=== PATIENT | female | born 1955 | race Caucasian/White ===

== ENCOUNTER 2019-05-25 11:20 | Emergency (ER) | payer OTHER ==
[~2019-05-25] VITALS: Ht 162.6 cm; Wt 72.6 kg
[2019-05-25] MEDS ORDERED: LIPITOR10 MG PO (11:45)
[2019-05-25 12:15] LABS: HEMATOCRIT 37.7 % (37.0-47.0); HEMOGLOBIN 13.1 gm/dL (12.0-15.0); MCHC 34.8 g/dL (28.0-37.0); MCV 86.3 fL (80.0-100.0); MPV 8.6 fl. (7.2-11.1); RBC 4.37 mil/uL (4.20-5.00); RDW-CV 12.7 % (10.5-14.5); WBC 8.4 thou/uL (4.0-11.0)
[2019-05-25 12:19] LABS: URINE BLOOD 2+ (Negative); URINE CLARITY CLEAR; URINE COLOR STRAW; URINE GLUCOSE-RANDOM NEGATIVE (Negative); URINE LEUKOCYTES-REFLEX NEGATIVE (Negative); URINE NITRITE-REFLEX NEGATIVE (Negative); URINE PROTEIN 2+ (Negative); URINE SPECIFIC GRAVITY >= 1.030 (1.005-1.030)
[2019-05-25 12:22] LABS: CALCIUM 8.2 mg/dL (8.5-10.1); POTASSIUM 4.3 mmol/L (3.5-5.1)
[2019-05-25 12:22] LABS: ICTOTEST (BILI CONFIRMATORY) Negative (Negative); URINE BILIRUBIN 2+ (Negative); URINE KETONES 3+ (Negative)
[2019-05-25 12:26] LABS: BACTERIA-REFLEX 1-9 Few /HPF (None Seen); MUCUS 0-3 Light strn/LPF (None Seen); SQUAMOUS 0-3 Few /LPF (0-3); URINE RBC 3-10 Few /HPF (0-2); URINE WBC-REFLEX 0-5 Rare /HPF (0-5)
[2019-05-25 12:27] LABS: AMORPHOUS URATES Few /LPF (None Seen); COARSE GRANULAR CASTS 0-3 Few /LPF (None Seen); FINE GRANULAR CASTS 0-3 Few /LPF (None Seen); HYALINE CASTS 4-10 Moderate /LPF (None Seen)
[2019-05-25 12:28] LABS: ALBUMIN 3.3 g/dL (3.4-5.0); TOTAL BILIRUBIN 0.4 mg/dL (<0.1-1.0); TOTAL PROTEIN 7.2 g/dL (6.4-8.2)
[2019-05-25 12:52] LABS: INFLUENZA A ANTIGEN Negative (Negative); INFLUENZA B ANTIGEN Negative (Negative)
[2019-05-25] MEDS ORDERED: LEVAQUIN 500 M500 M3 PO ×2 (13:45→14:01)
[2019-05-25 14:10] VITALS: BP 125/74
== END 2019-05-25 14:11 | disposition home or self-care (01) ==
LOC: M.ERS 11:20
PROVIDERS: Nurse Practitioner Family
DX: J18.9 Pneumonia, unspecified organism (principal); R68.89 Other general symptoms and signs; R31.9 Hematuria, unspecified; R19.7 Diarrhea, unspecified; E78.5 Hyperlipidemia, unspecified; Z90.710 Acquired absence of both cervix and uterus; Z98.51 Tubal ligation status; Z90.89 Acquired absence of other organs; Z86.2 Personal history of diseases of the blood and blood-forming organs and certain disorders involving the immune mechanism

== ENCOUNTER 2019-05-27 19:18 | Inpatient (IN) | payer OTHER ==
[~2019-05-27] VITALS: Ht 157.5 cm; Wt 74.8 kg
[~2019-05-27 19:18] MED LIST: LEVAQUIN 500 M500 M3 PO; LIPITOR10 MG PO
[2019-05-27 19:34] VITALS: BP 124/64
[2019-05-27 20:09] LABS: CREATININE 0.9 mg/dL (0.6-1.3); POTASSIUM 3.5 mmol/L (3.5-5.1)
[2019-05-27 20:16] LABS: INR 1.2; PROTIME 12.4 Seconds (9.20-11.50)
[2019-05-27 20:21] LABS: ALBUMIN 3.1 g/dL (3.4-5.0); MAGNESIUM 1.8 mg/dL (1.8-2.4); TOTAL BILIRUBIN 0.4 mg/dL (<0.1-1.0); TOTAL PROTEIN 6.7 g/dL (6.4-8.2)
[2019-05-27 20:57] LABS: ABSOLUTE EOSINOPHILS 0.3 thou/uL (0.0-0.7); ABSOLUTE MONOCYTES 0.6 thou/uL (0.0-1.2); ABSOLUTE NEUTROPHILS 6.7 thou/uL (1.6-8.1); BASOPHILS 0.5 %; HEMATOCRIT 31.2 % (37.0-47.0); LYMPHOCYTES 11.2 %; MCH 30.2 pg (26.0-34.0); MCV 86.4 fL (80.0-100.0); MONOCYTES 7.3 %; MPV 9.3 fl. (7.2-11.1); NUCLEATED RBCS 0 /100WBC; RBC 3.61 mil/uL (4.20-5.00); RDW-CV 12.6 % (10.5-14.5); WBC 8.6 thou/uL (4.0-11.0)
[2019-05-27 21:16] LABS: HEMOGLOBIN 10.9 gm/dL (12.0-15.0)
[2019-05-27 21:20] LABS: PLATELET COUNT* 3 thou/uL (150-400); PLATELET ESTIMATE DECREASED
[2019-05-27 23:25] LABS: URINE BILIRUBIN NEGATIVE (Negative); URINE BLOOD 2+ (Negative); URINE CLARITY CLEAR; URINE COLOR YELLOW; URINE GLUCOSE-RANDOM NEGATIVE (Negative); URINE LEUKOCYTES-REFLEX NEGATIVE (Negative); URINE NITRITE-REFLEX NEGATIVE (Negative); URINE PROTEIN TRACE (Negative); URINE SPECIFIC GRAVITY >= 1.030 (1.005-1.030); URINE UROBILINOGEN 0.2 E.U./dl (0.2-1.0)
[2019-05-27 23:26] LABS: URINE KETONES 3+ (Negative)
[2019-05-27 23:34] LABS: SQUAMOUS 0-3 Few /LPF (0-3)
[2019-05-27 23:35] LABS: BACTERIA-REFLEX >30 Many /HPF (None Seen); CRYSTALS None Seen /LPF (None Seen); FINE GRANULAR CASTS 4-10 Moderate /LPF (None Seen); HYALINE CASTS 4-10 Moderate /LPF (None Seen); MUCUS >6 Heavy strn/LPF (None Seen); URINE WBC-REFLEX 6-15 Few /HPF (0-5)
[2019-05-28] VITALS (12 sets, daily range): BP systolic 94–135; BP diastolic 38–72
[2019-05-28 03:39] LABS: HEMATOCRIT 31.7 % (37.0-47.0); MCH 30.3 pg (26.0-34.0); MCHC 34.9 g/dL (28.0-37.0); MCV 86.9 fL (80.0-100.0); MPV 8.8 fl. (7.2-11.1); RBC 3.65 mil/uL (4.20-5.00); RDW-CV 12.7 % (10.5-14.5); WBC 8.1 thou/uL (4.0-11.0)
[2019-05-28 04:26] LABS: CALCIUM 7.3 mg/dL (8.5-10.1); CREATININE 0.6 mg/dL (0.6-1.3); POTASSIUM 3.8 mmol/L (3.5-5.1)
[2019-05-28 18:36] LABS: ABSOLUTE BASOPHILS 0.1 thou/uL (0.0-0.2); ABSOLUTE EOSINOPHILS 0.2 thou/uL (0.0-0.7); ABSOLUTE LYMPHOCYTES 1.3 thou/uL (0.8-5.3); ABSOLUTE MONOCYTES 0.7 thou/uL (0.0-1.2); ABSOLUTE NEUTROPHILS 6.5 thou/uL (1.6-8.1); BASOPHILS 0.6 %; EOSINOPHILS 2.7 %; HEMATOCRIT 29.6 % (37.0-47.0); HEMOGLOBIN 10.4 gm/dL (12.0-15.0); LYMPHOCYTES 14.5 %; MCH 30.6 pg (26.0-34.0); MCHC 35.3 g/dL (28.0-37.0); MCV 86.7 fL (80.0-100.0); MONOCYTES 8.2 %; MPV 9.3 fl. (7.2-11.1); NUCLEATED RBCS 0 /100WBC; RBC 3.41 mil/uL (4.20-5.00); RDW-CV 12.9 % (10.5-14.5); WBC 8.7 thou/uL (4.0-11.0)
[2019-05-28 18:38] LABS: PLATELET COUNT* 3 thou/uL (150-400)
[2019-05-28 23:04] LABS: HEMATOCRIT 26.1 % (37.0-47.0); HEMOGLOBIN 9.2 gm/dL (12.0-15.0); MCH 30.8 pg (26.0-34.0); MCHC 35.1 g/dL (28.0-37.0); MCV 87.6 fL (80.0-100.0); MPV 8.3 fl. (7.2-11.1); RBC 2.98 mil/uL (4.20-5.00); RDW-CV 12.8 % (10.5-14.5)
[2019-05-29] VITALS (13 sets, daily range): BP systolic 93–128; BP diastolic 36–72
[2019-05-29 03:04] LABS: ABSOLUTE EOSINOPHILS 0.3 thou/uL (0.0-0.7); ABSOLUTE LYMPHOCYTES 1.7 thou/uL (0.8-5.3); EOSINOPHILS 4.5 %; HEMOGLOBIN 9.5 gm/dL (12.0-15.0)
[2019-05-29 03:06] LABS: ABSOLUTE MONOCYTES 0.6 thou/uL (0.0-1.2); BASOPHILS 0.6 %; HEMATOCRIT 27.1 % (37.0-47.0); LYMPHOCYTES 21.6 %; MCH 30.9 pg (26.0-34.0); MCHC 35.2 g/dL (28.0-37.0); MCV 87.7 fL (80.0-100.0); MONOCYTES 7.9 %; MPV 8.8 fl. (7.2-11.1); NUCLEATED RBCS 0 /100WBC; POLYS 65.4 %; RBC 3.09 mil/uL (4.20-5.00); RDW-CV 12.8 % (10.5-14.5); WBC 7.7 thou/uL (4.0-11.0)
[2019-05-29 03:26] LABS: PLATELET COUNT* 28 thou/uL (150-400)
[2019-05-29 03:29] LABS: CREATININE 0.6 mg/dL (0.6-1.3); POTASSIUM 3.3 mmol/L (3.5-5.1)
[2019-05-29 03:30] LABS: CALCIUM 7.5 mg/dL (8.5-10.1)
--- NOTE | 2019-05-29 07:26 | CON ---
[address] [address] CONSULTATION Name: GARRYELMER Bonnie Room: [address] IN .R.#: [id number] Admission: 05/27/19 Attend Phys: Ray Vital Discharge: Date of : 53 Report #: [id number] THIS REPORT FOR: //name// cc: MERI Champion family physician/PCP MERI Champion family physician/PCP ~ THIS REPORT FOR: //name// CC: MERI physician/PCP Ray Espino DATE OF SERVICE: 05/28/2019 INFECTIOUS DISEASE CONSULTATION ATTENDING PHYSICIAN: Ray Espino MD REASON FOR EVALUATION: Diarrheal illness complicated by nausea, emesis, profound thrombocytopenia, recent diagnosis of urinary tract infection, where she received 3 antimicrobials and developed a rash as well. She notes onset of illness was greater than a week ago, had developed some weakness. At one point, I believe, could not get out of bed, was dehydrated, poor p.o. intake due to anorexia. She was evaluated, hydrated up, given combination antibiotics of trimethoprim/sulfamethoxazole, Macrobid as well as Levaquin. It is notable that she had fever at that point, ____ was tested, the results are pending for the COVID-19 (SARS CoV-2) infection. However, she continued to deteriorate and was readmitted over the course of the last evening. She is in the intensive care unit. She is on supplemental oxygen 2 liters. Although she is lucid, she describes profound weakness primarily. She has been quite tachycardic, she states, for the past week. Initial lactic acid on presentation was 1.7. Troponin was in the normal range. Chest x-ray, subtle lingular infiltrate versus scarring. White count was normal. Her profound thrombocytopenia had dropped over the course of 48 hours from 139 to 3. Does have a normal lymphocyte count of 1000. Urinalysis still shows 6-15 white cells, greater than 30 bacteria. She has not been febrile since admission. She is empirically started on therapy with vancomycin. ALLERGIES: None known. Levaquin potentially causing a hypersensitivity rash, but she had been on 3 antibiotics at that point. MEDICINES: Include atorvastatin. PAST MEDICAL HISTORY: Includes hyperlipidemia, previous hysterectomy, history of anemia, tonsillectomy. SOCIAL HISTORY: Nonsmoker. Occasional ethanol. [place] [address] CONSULTATION Name: ELMER CASTAÑEDA Room: [address]#: [id number] Admission: 05/27/19 Attend Phys: Ray Vital Discharge: Date of : 53 Report #: [id number] FAMILY HISTORY: Noncontributory. REVIEW OF SYSTEMS: As above. PHYSICAL EXAMINATION: GENERAL: She is alert, cooperative, [id number] distress. She is lucid, appears reasonably well nourished. VITAL SIGNS: Temperature 98, pulse 96, respirations 13, blood pressure is 100/54, saturation 97% on 2 liters nasal cannula. HEENT: Normocephalic. Extraocular muscles intact. NECK: Supple. LUNGS: She has scattered coarse breath sounds. Good air movement. HEART: Tachycardic, appears to be generally regular. ABDOMEN: Soft, nontender and nondistended. There is no CVA tenderness. GENITOURINARY AND RECTAL: Deferred. LABORATORY DATA: This morning, sodium 135, potassium 3.5, chloride 100, bicarbonate is 21, anion gap of 14, BUN and creatinine 13 and 0.9, glucose 122, AST of 30, ALT of 62, albumin of 3.1, estimated GFR of 63. CBC: White count of 8.1, H and H 11.0 and 31.7, platelets of 23, that was after a transfusion of platelets. Urinalysis, pH 5.5, 3+ ketones, 2+ blood, negative for leukocytes; however, had 6-15 white cells, 11-20 red cells, greater than 30 bacteria, no crystals. ASSESSMENT: Febrile illness, nausea, emesis, certainly reasonable to try to exclude COVID. There are 7 features that are not classic including the absolute lymphocytopenia, non-elevation of the AST, does have some respiratory abnormalities. We will avoid the therapies that had been initiated previously. I think we need to use some gram-negative coverage. We will add aztreonam to her regimen. Await results of the blood and urine cultures. Monitor expectantly. <ELECTRONICALLY SIGNED> By: Charanjit Urena MD 05/29/19 0726 [id number] Urena MD /nt
[2019-05-29 14:07] LABS: HEMOGLOBIN 10.8 g/dL (11.1-15.9)
[2019-05-30 04:00] VITALS: BP 128/77
[2019-05-30 04:47] LABS: ABSOLUTE MONOCYTES 0.3 thou/uL (0.0-1.2); ABSOLUTE NEUTROPHILS 4.8 thou/uL (1.6-8.1); BASOPHILS 0.2 %; EOSINOPHILS 0.1 %; HEMATOCRIT 27.2 % (37.0-47.0); HEMOGLOBIN 9.5 gm/dL (12.0-15.0); LYMPHOCYTES 16.7 %; MCH 30.1 pg (26.0-34.0); MCHC 34.9 g/dL (28.0-37.0); MCV 86.3 fL (80.0-100.0); MONOCYTES 5.4 %; MPV 10.9 fl. (7.2-11.1); NUCLEATED RBCS 0 /100WBC; PLATELET COUNT* 73 thou/uL (150-400); POLYS 77.6 %; RBC 3.16 mil/uL (4.20-5.00); RDW-CV 12.7 % (10.5-14.5); WBC 6.3 thou/uL (4.0-11.0)
[2019-05-30 05:09] LABS: ALBUMIN 2.1 g/dL (3.4-5.0); CALCIUM 7.7 mg/dL (8.5-10.1); CREATININE 0.5 mg/dL (0.6-1.3); POTASSIUM 3.7 mmol/L (3.5-5.1); TOTAL BILIRUBIN 0.3 mg/dL (<0.1-1.0); TOTAL PROTEIN 5.5 g/dL (6.4-8.2)
[2019-05-30 08:00] VITALS: BP 130/71
[2019-05-30 12:00] VITALS: BP 109/52
[2019-05-30 16:00] VITALS: BP 134/65
[2019-05-30 20:00] VITALS: BP 139/73
[2019-05-31] VITALS: BP 134/77
[2019-05-31 04:53] LABS: ABSOLUTE BASOPHILS 0.1 thou/uL (0.0-0.2); ABSOLUTE EOSINOPHILS 0.4 thou/uL (0.0-0.7); ABSOLUTE LYMPHOCYTES 3.2 thou/uL (0.8-5.3); ABSOLUTE MONOCYTES 0.8 thou/uL (0.0-1.2); ABSOLUTE NEUTROPHILS 4.6 thou/uL (1.6-8.1); BASOPHILS 0.8 %; EOSINOPHILS 4.3 %; HEMATOCRIT 29.7 % (37.0-47.0); HEMOGLOBIN 10.4 gm/dL (12.0-15.0); LYMPHOCYTES 35.6 %; MCH 30.2 pg (26.0-34.0); MCHC 35.1 g/dL (28.0-37.0); MCV 85.9 fL (80.0-100.0); MPV 9.9 fl. (7.2-11.1); NUCLEATED RBCS 0 /100WBC; POLYS 50.3 %; RBC 3.45 mil/uL (4.20-5.00); RDW-CV 13.1 % (10.5-14.5); WBC 9.1 thou/uL (4.0-11.0)
[2019-05-31 05:01] LABS: CALCIUM 7.9 mg/dL (8.5-10.1); CREATININE 0.6 mg/dL (0.6-1.3)
[2019-05-31 05:17] LABS: PLATELET COUNT* 185 thou/uL (150-400)
[2019-05-31 08:30] VITALS: BP 141/93
[2019-05-31 16:00] VITALS: BP 111/50
[2019-05-31 16:15] VITALS: BP 133/65
[2019-05-31 20:00] VITALS: BP 143/82
[2019-06-01] VITALS: BP 151/81
[2019-06-01 04:01] VITALS: BP 153/90
[2019-06-01 04:33] LABS: ABSOLUTE BASOPHILS 0.1 thou/uL (0.0-0.2); ABSOLUTE EOSINOPHILS 0.4 thou/uL (0.0-0.7); ABSOLUTE LYMPHOCYTES 2.9 thou/uL (0.8-5.3); ABSOLUTE MONOCYTES 0.7 thou/uL (0.0-1.2); ABSOLUTE NEUTROPHILS 2.3 thou/uL (1.6-8.1); BASOPHILS 1.1 %; HEMATOCRIT 28.7 % (37.0-47.0); HEMOGLOBIN 9.9 gm/dL (12.0-15.0); LYMPHOCYTES 46.1 %; MCH 30.1 pg (26.0-34.0); MCHC 34.5 g/dL (28.0-37.0); MCV 87.2 fL (80.0-100.0); MONOCYTES 11.1 %; MPV 8.9 fl. (7.2-11.1); NUCLEATED RBCS 0 /100WBC; PLATELET COUNT* 243 thou/uL (150-400); POLYS 35.7 %; RBC 3.29 mil/uL (4.20-5.00); WBC 6.4 thou/uL (4.0-11.0)
[2019-06-01 05:14] LABS: ALBUMIN 2.2 g/dL (3.4-5.0); CALCIUM 8.1 mg/dL (8.5-10.1); CREATININE 0.7 mg/dL (0.6-1.3); TOTAL BILIRUBIN 0.3 mg/dL (<0.1-1.0); TOTAL PROTEIN 5.3 g/dL (6.4-8.2)
[2019-06-01 08:25] VITALS: BP 146/92
[2019-06-01] MEDS ORDERED: CEFDINIR300 MG PO (11:46)
[2019-06-01] MEDS ORDERED: PROTONIX40 M1 PO (11:46)
[2019-06-01 11:48] VITALS: BP 146/92
--- NOTE | 2019-06-01 12:22 | EKG ---
[place] [address] ELECTROCARDIOGRAM REPORT Name: ELMER CASTAÑEDA Room: [place] [address] ADM IN [facility]#: [id number] Admission: 05/27/19 Attend Phys: Ray rawls Sa Discharge: Date of : 53 Date of Service: 05/27/191942 Report #: [id number] THIS REPORT FOR: //name// [facility] ED Test Date: 2019-05-27 Test Time: 19:43:04 Pat Name: ELMER CASTAÑEDA Department: Room: [facility] Gender: F Medical Chief Technician: DEVEN : 1955 Requested By: Ronda Boo Order Number: [id number] MD: Marvin Estrada Measurements Intervals [place] Rate: 109 P: 55 MT: 116 QRS: 45 QRSD: 95 T: 41 QT: 323 QTc: 436 Interpretive Statements Sinus tachycardia No previous ECG available for comparison Electronically Signed On 05-28-2019 9:10:18 CDT by Marvin Estrada [email or web address] <ELECTRONICALLY SIGNED> By: Marvin Estrada MD, [facility] 05/28/1910 42 42 Marvin Estrada MD, FAC /EPI
--- NOTE | 2019-06-01 12:25 | EKG ---
[place] [address] ELECTROCARDIOGRAM REPORT Name: GARRYELMER Nicole Room: [address] IN [facility]#: [id number] Admission: 05/27/19 Attend Phys: Ray rawls Sa Discharge: Date of : 53 Date of Service: 05/28/19 1645 Report #: [id number] THIS REPORT FOR: //name// [facility] Test Date: 2019-05-28 Test Time: 16:45:38 Pat Name: ELMER CASTAÑEDA Department: Room: [address] Gender: F Chemistry Technician: FRANCESCO : 1955 Requested By: Marquez Yadav Order Number: [id number] MD: Aiden Aaron Measurements Intervals [place] Rate: 102 P: 125 RI: 125 QRS: 130 QRSD: 99 T: 153 QT: 333 QTc: 434 Interpretive Statements Right and left arm electrode reversal, interpretation assumes no reversal Sinus tachycardia Probable lateral infarct, age indeterminate Compared to ECG 05/27/2019 19:43:04 Myocardial infarct finding now present Electronically Signed On 05-29-2019 11:02:41 CDT by Aiden Aaron [email or web address] <ELECTRONICALLY SIGNED> By: Aiden Aaron MD, FACC 05/29/19 1102 1645 1645 Aiden Aaron MD, FAC /EPI
== END 2019-06-01 13:12 | disposition home or self-care (01) | DRG 871 ==
LOC: M.ERS 19:18 → M.TBA-ER 22:31 → M.ICU 22:31 → M.2W 05-29 17:40
PROVIDERS: Emergency Medicine; Internal Medicine; Internal Medicine Hematology & Oncology; Nurse Practitioner; ADMIT Family Medicine
PROC: 30233R1 Transfusion of Nonautologous Platelets into Peripheral Vein, Percutaneous Approach (ICD-10-PCS; principal; 2019-05-27)
DX: A41.9 Sepsis, unspecified organism (principal); J18.9 Pneumonia, unspecified organism; J15.9 Unspecified bacterial pneumonia; N39.0 Urinary tract infection, site not specified; E78.5 Hyperlipidemia, unspecified; Z20.828 Contact with and (suspected) exposure to other viral communicable diseases; D69.6 Thrombocytopenia, unspecified; F41.9 Anxiety disorder, unspecified; Z90.710 Acquired absence of both cervix and uterus; Z79.899 Other long term (current) drug therapy